=== PATIENT | female | born 1985 | race Caucasian/White ===

== ENCOUNTER 2018-09-02 15:17 | Emergency (ER) | payer OTHER, SELFPAY ==
[2018-09-02 15:30] VITALS: BP 127/91; PULSE 93; RESP 15; TEMP 37.1; O2SAT 97; BMI 31.3
--- NOTE | 2018-09-02 15:33 | DI.RAD.S_ITS ---
PROCEDURE: XR FOOT RT MIN 3V INDICATIONS: dropped something on foot TECHNIQUE: 3 views of the foot were acquired. COMPARISON: None. FINDINGS: Bones: No fractures or dislocations. No suspicious bony lesions. Soft tissues: No tibiotalar joint effusion. Achilles tendon appears normal. IMPRESSION: No visualized acute fracture or dislocation. However, if clinical concern and/or pain persist, short interval imaging followup in 7-10 days is recommended, as occult injury cannot be definitively excluded. Dictated by: Kimberlee Handy M.D. on 09/02/2018 at 16:00 Approved by: Kimberlee Handy M.D. on 09/02/2018 at 16:03
--- NOTE | 2018-09-02 16:32 | ED.LOWEXIN ---
HPI - Extremity Injury (Lower) <NIRAJ Alvarado - Last Filed: 09/02/18 17:17> General Chief Complaint: Extremity Injury, Lower Stated Complaint: Saw horse fell on right foot Time Seen by Provider: 09/02/18 16:07 Source: patient Mode of arrival: ambulatory Limitations: no limitations History of Present Illness HPI Narrative: The patient is a 33-year-old female who presents with a chief complaint of right foot pain. the patient states that homemade saw horse fell on her foot. She states she is able to walk. This happened an hour prior to arrival. She has not taken anything for the pain, is not applied ice. She is concerned about a foot fracture. She states she can move her toes, but is painful to do so. She denies any daily medications. Related Data Home Medications Medication Instructions Recorded Confirmed No Known Home Medications 09/02/18 09/02/18 Allergies Allergy/AdvReac Type Severity Reaction Status Date / Time No Known Drug Allergies Allergy Verified 09/02/18 15:30 Review of Systems <NIRAJ Alvarado - Last Filed: 09/02/18 17:17> Review of Systems GENERAL: Denies chills, fatigue, malaise, fever, sweats. HEENT: Denies sinus pain, ear pain, sore throat, difficulty swallowing, dizziness. RESPIRATORY: Denies dyspnea, cough, wheezing, hemoptysis, sputum. CARDIOVASCULAR: Denies chest pain, palpitations, orthopnea, edema, GASTROINTESTINAL: Denies nausea, vomiting, abdominal pain, diarrhea, constipation, melena. : Denies dysuria, frequency, incontinence, hematuria, urinary retention. MUSCULOSKELETAL: See HPI SKIN: See HPI NEUROLOGIC: Denies weakness, headache, numbness, change in speech, confusion, seizures, incoordination. PSYCHIATRIC: No concerning psychosocial issues. 12 point review of systems is negative except for those stated above PFSH <NIRAJ Alvarado - Last Filed: 09/02/18 17:17> Social History Smoking Status: Unknown if ever smoked Social History Smoking Status: Unknown if ever smoked Exam <NIRAJ Alvardao - Last Filed: 09/02/18 17:17> Narrative Exam Narrative: GENERAL: This is a well-nourished, well-developed patient, no acute distress HEAD: Atraumatic. Normocephalic. No temporal or scalp tenderness. EYES: Pupils equal round and reactive. Extraocular motions intact. No scleral icterus. No injection or drainage. ENT: Nose without bleeding, purulent drainage or septal hematoma. Throat without erythema, tonsillar hypertrophy or exudate. Uvula midline. Airway patent. NECK: Trachea midline. No JVD or lymphadenopathy. Supple, nontender, no meningeal signs. CARDIOVASCULAR: Regular rate and rhythm without murmurs, gallops, or rubs. RESPIRATORY: No cough. No increased respiratory effort. EXTREMITIES: Pain to palpation at the base of the 1st toe of the right foot. Range of motion intact toes right foot. Capillary refill less than 2 seconds all toes right foot. BACK: Nontender without deformity or crepitance. No flank tenderness. NEURO: AOx3. SKIN: 2 cm area of ecchymosis at the base of the 1st toe of the right foot. No laceration or abrasion noted. Initial Vital Signs Initial Vital Signs: Vital Signs Temperature 98.7 F 09/02/18 15:30 Pulse Rate 93 H 09/02/18 15:30 Respiratory Rate 15 09/02/18 15:30 Blood Pressure 127/91 H 09/02/18 15:30 Pulse Oximetry 97 09/02/18 15:30 <Juana Mott DO - Last Filed: 09/05/18 19:09> Initial Vital Signs Initial Vital Signs: Vital Signs Temperature 98.7 F 09/02/18 15:30 Pulse Rate 93 H 09/02/18 15:30 Respiratory Rate 15 09/02/18 15:30 Blood Pressure 127/91 H 09/02/18 15:30 Pulse Oximetry 97 09/02/18 15:30 Course <NIRAJ Alvarado - Last Filed: 09/02/18 17:17> Orders Ordered: Discontinued Medications Ketorolac Tromethamine (Toradol) 60 mg IM NOW ONE Stop: 09/02/18 16:25 Last Admin: 09/02/18 17:04 Dose: 60 mg Vital Signs - 8 hr 09/02/18 15:30 Temperature 98.7 F Pulse Rate 93 H Respiratory Rate 15 Blood Pressure 127/91 H Pulse Oximetry 97 <Juana Mott DO - Last Filed: 09/05/18 19:09> Orders Ordered: Discontinued Medications Ketorolac Tromethamine (Toradol) 60 mg IM NOW ONE Stop: 09/02/18 16:25 Last Admin: 09/02/18 17:04 Dose: 60 mg Vital Signs - 8 hr 09/02/18 15:30 Temperature 98.7 F Pulse Rate 93 H Respiratory Rate 15 Blood Pressure 127/91 H Pulse Oximetry 97 [facility] - Extremity Injury (Lower) <NIRAJ Alvarado - Last Filed: 09/02/18 17:17> Imaging Data foot xray: Radiologist's impression: [address] [address] XRay Report Signed Patient: Holly Marshall LMR#: [id number] : 1985Acct:[id number] Age/Sex: 33 / FDate of Service: 09/02/18 Loc: ED Accession Number: [id number] Procedure: XR foot RT min 3V Ordering Provider: Juana Mott D.O. PROCEDURE: XR FOOT RT MIN 3V INDICATIONS: dropped something on foot TECHNIQUE: 3 views of the foot were acquired. COMPARISON: None. FINDINGS: Bones: No fractures or dislocations. No suspicious bony lesions. Soft tissues: No tibiotalar joint effusion. Achilles tendon appears normal. IMPRESSION: No visualized acute fracture or dislocation. However, if clinical concern and/or pain persist, short interval imaging followup in 7-10 days is recommended, as occult injury cannot be definitively excluded. Dictated by: Kimberlee Handy M.D. on 09/02/2018 at 16:00 Approved by: Kimberlee Handy M.D. on 09/02/2018 at 16:03 [facility] Narrative Medical decision making narrative: The patient is a 33-year-old presents with a chief complaint of right foot pain after a saw horse fell on her foot she has a negative x-ray. I discussed at length her rest impression elevation. She was neurovascularly intact at this point time. She was given Toradol in the emergency department with the understanding not taking any ibuprofen for the next 6-8 hours. I discussed continued rest ice compression elevation as well as [id number] pain medication as needed and able. Discussed follow-up with primary care provider. Patient has no questions or concerns upon discharge. Discharge Plan Departure Patient Disposition: Home Clinical Impression: Contusion Qualifiers: Encounter type: initial encounter Contusion area: foot Laterality: right Qualified Code(s): S90.31XA - Contusion of right foot, initial encounter Acute foot pain Qualifiers: Laterality: right Qualified Code(s): M79.671 - Pain in right foot Clinical Impression: (Ruled Out): Fracture of toe Discharge Date/Time: 09/02/18 17:16 Interventions: ED Discharge Assessment Last Done: 09/02/18 17:16 Instructions: DI for Contusion, How To Perform RICE (Rest, Ice, Compress, Elevate), DI for Foot Pain Activity Restrictions/Additional Instructions: Your x-ray shows no fractures. Please follow up with your primary care provider if worsening or no improvement. Please take [id number]-[id number] medications as needed and able as well as rest ice compression elevation. Please do not take ibuprofen for 6-8 hours after the pain injection in the ER. Come back to the ER for any acute concerns. Prescriptions: No Action No Known Home Medications RF: 0 Referrals: [facility] [Provider Group] <Juana Mott DO - Last Filed: 09/05/18 19:09> [facility] Attending Joceline Attestation: I was immediately available in the department for consultation. Documentation has been reviewed. I agree with assessment and plan.
--- NOTE | 2018-09-02 16:37 | ED_ITS ---
HPI - Extremity Injury (Lower) <NIRAJ Alvarado - Last Filed: 09/02/18 17:17> General Chief Complaint: Extremity Injury, Lower Stated Complaint: Saw horse fell on right foot Time Seen by Provider: 09/02/18 16:07 Source: patient Mode of arrival: ambulatory Limitations: no limitations History of Present Illness HPI Narrative: The patient is a 33-year-old female who presents with a chief complaint of right foot pain. the patient states that homemade saw horse fell on her foot. She states she is able to walk. This happened an hour prior to arrival. She has not taken anything for the pain, is not applied ice. She is concerned about a foot fracture. She states she can move her toes, but is painful to do so. She denies any daily medications. Related Data Home Medications Medication Instructions Recorded Confirmed No Known Home Medications 09/02/18 09/02/18 Allergies Allergy/AdvReac Type Severity Reaction Status Date / Time No Known Drug Allergies Allergy Verified 09/02/18 15:30 Review of Systems <NIRAJ Alvarado - Last Filed: 09/02/18 17:17> Review of Systems GENERAL: Denies chills, fatigue, malaise, fever, sweats. HEENT: Denies sinus pain, ear pain, sore throat, difficulty swallowing, dizziness. RESPIRATORY: Denies dyspnea, cough, wheezing, hemoptysis, sputum. CARDIOVASCULAR: Denies chest pain, palpitations, orthopnea, edema, GASTROINTESTINAL: Denies nausea, vomiting, abdominal pain, diarrhea, constipation, melena. : Denies dysuria, frequency, incontinence, hematuria, urinary retention. MUSCULOSKELETAL: See HPI SKIN: See HPI NEUROLOGIC: Denies weakness, headache, numbness, change in speech, confusion, seizures, incoordination. PSYCHIATRIC: No concerning psychosocial issues. 12 point review of systems is negative except for those stated above PFSH <NIRAJ Alvarado - Last Filed: 09/02/18 17:17> Social History Smoking Status: Unknown if ever smoked Social History Smoking Status: Unknown if ever smoked Exam <NIRAJ Alvarado - Last Filed: 09/02/18 17:17> Narrative Exam Narrative: GENERAL: This is a well-nourished, well-developed patient, no acute distress HEAD: Atraumatic. Normocephalic. No temporal or scalp tenderness. EYES: Pupils equal round and reactive. Extraocular motions intact. No scleral icterus. No injection or drainage. ENT: Nose without bleeding, purulent drainage or septal hematoma. Throat without erythema, tonsillar hypertrophy or exudate. Uvula midline. Airway patent. NECK: Trachea midline. No JVD or lymphadenopathy. Supple, nontender, no meningeal signs. CARDIOVASCULAR: Regular rate and rhythm without murmurs, gallops, or rubs. RESPIRATORY: No cough. No increased respiratory effort. EXTREMITIES: Pain to palpation at the base of the 1st toe of the right foot. Range of motion intact toes right foot. Capillary refill less than 2 seconds all toes right foot. BACK: Nontender without deformity or crepitance. No flank tenderness. NEURO: AOx3. SKIN: 2 cm area of ecchymosis at the base of the 1st toe of the right foot. No laceration or abrasion noted. Initial Vital Signs Initial Vital Signs: Vital Signs Temperature 98.7 F 09/02/18 15:30 Pulse Rate 93 H 09/02/18 15:30 Respiratory Rate 15 09/02/18 15:30 Blood Pressure 127/91 H 09/02/18 15:30 Pulse Oximetry 97 09/02/18 15:30 <Juana Mott DO - Last Filed: 09/05/18 19:09> Initial Vital Signs Initial Vital Signs: Vital Signs Temperature 98.7 F 09/02/18 15:30 Pulse Rate 93 H 09/02/18 15:30 Respiratory Rate 15 09/02/18 15:30 Blood Pressure 127/91 H 09/02/18 15:30 Pulse Oximetry 97 09/02/18 15:30 Course <NIRAJ Alvarado - Last Filed: 09/02/18 17:17> Orders Ordered: Discontinued Medications Ketorolac Tromethamine (Toradol) 60 mg IM NOW ONE Stop: 09/02/18 16:25 Last Admin: 09/02/18 17:04 Dose: 60 mg Vital Signs - 8 hr 09/02/18 15:30 Temperature 98.7 F Pulse Rate 93 H Respiratory Rate 15 Blood Pressure 127/91 H Pulse Oximetry 97 <Juana Mott DO - Last Filed: 09/05/18 19:09> Orders Ordered: Discontinued Medications Ketorolac Tromethamine (Toradol) 60 mg IM NOW ONE Stop: 09/02/18 16:25 Last Admin: 09/02/18 17:04 Dose: 60 mg Vital Signs - 8 hr 09/02/18 15:30 Temperature 98.7 F Pulse Rate 93 H Respiratory Rate 15 Blood Pressure 127/91 H Pulse Oximetry 97 [facility] - Extremity Injury (Lower) <NIRAJ Alvarado - Last Filed: 09/02/18 17:17> Imaging Data foot xray: Radiologist's impression: [address] [address] XRay Report Signed Patient: Holly Marshall LMR#: [id number] : 1985Acct:[id number] Age/Sex: 33 / FDate of Service: 09/02/18 Loc: ED Accession Number: [id number] Procedure: XR foot RT min 3V Ordering Provider: Juana Mott D.O. PROCEDURE: XR FOOT RT MIN 3V INDICATIONS: dropped something on foot TECHNIQUE: 3 views of the foot were acquired. COMPARISON: None. FINDINGS: Bones: No fractures or dislocations. No suspicious bony lesions. Soft tissues: No tibiotalar joint effusion. Achilles tendon appears normal. IMPRESSION: No visualized acute fracture or dislocation. However, if clinical concern and/or pain persist, short interval imaging followup in 7-10 days is recommended, as occult injury cannot be definitively excluded. Dictated by: Kimberlee Handy M.D. on 09/02/2018 at 16:00 Approved by: Kimberlee Handy M.D. on 09/02/2018 at 16:03 [facility] Narrative Medical decision making narrative: The patient is a 33-year-old presents with a chief complaint of right foot pain after a saw horse fell on her foot she has a negative x-ray. I discussed at length her rest impression elevation. She was neurovascularly intact at this point time. She was given Toradol in the emergency department with the understanding not taking any ibuprofen for the next 6-8 hours. I discussed continued rest ice compression elevation as well as ewkm-ttu-yfuxioj pain medication as needed and able. Discussed follow-up with primary care provider. Patient has no questions or concerns upon discharge. Discharge Plan Departure Patient Disposition: Home Clinical Impression: Contusion Qualifiers: Encounter type: initial encounter Contusion area: foot Laterality: right Qualified Code(s): S90.31XA - Contusion of right foot, initial encounter Acute foot pain Qualifiers: Laterality: right Qualified Code(s): M79.671 - Pain in right foot Clinical Impression: (Ruled Out): Fracture of toe Discharge Date/Time: 09/02/18 17:16 Interventions: ED Discharge Assessment Last Done: 09/02/18 17:16 Instructions: DI for Contusion, How To Perform RICE (Rest, Ice, Compress, Elevate), DI for Foot Pain Activity Restrictions/Additional Instructions: Your x-ray shows no fractures. Please follow up with your primary care provider if worsening or no improvement. Please take kawa-[id number] medications as needed and able as well as rest ice compression elevation. Please do not take ibuprofen for 6-8 hours after the pain injection in the ER. Come back to the ER for any acute concerns. Prescriptions: No Action No Known Home Medications RF: 0 Referrals: [facility] [Provider Group] <Juana Mott DO - Last Filed: 09/05/18 19:09> [facility] Attending Joceline Attestation: I was immediately available in the department for consultation. Documentation has been reviewed. I agree with assessment and plan.
[2018-09-02] MEDS: KETOROLAC 60 MG/2 ML VIAL IM (17:04)
[2018-09-02 17:16] VITALS: BP 121/86; PULSE 97; O2SAT 98
== END 2018-09-02 17:16 | disposition home or self-care (01) ==
PROVIDERS: Emergency Provider Nurse Practitioner Family
DX: S90.31XA Contusion of right foot, initial encounter (principal); W20.8XXA Other cause of strike by thrown, projected or falling object, initial encounter
CPT/HCPCS: 73630; 96372; 99282; 99283; J1885